=== PATIENT | female | born 1980 | race Two or more races ===

== ENCOUNTER 2022-12-16 20:37 | Emergency (ER) | payer OTHER ==
[~2022-12-16] VITALS: Ht 144.8 cm; Wt 62.6 kg
[2022-12-16] MEDS ORDERED: IBUP-1955 PO ×2 (21:23→22:03)
[2022-12-16] MEDS ORDERED: KETOROLAC TROMETHAMINE INJ 30 MG/ML VIAL ONE (21:27)
[2022-12-16] MEDS ORDERED: ACETAMINOPHEN 325 MG TABLET PO ONE (21:30)
[2022-12-16] MEDS ORDERED: KETOROLAC TROMETHAMINE INJ 30 MG/ML VIAL IM ONE (21:30)
[2022-12-16 22:49] VITALS: BP 135/87; TEMP 98.1; O2SAT 98
== END 2022-12-16 22:45 | disposition home or self-care (01) ==
LOC: EDBD 20:56 → ER 20:56
DX: S93.402A Sprain of unspecified ligament of left ankle, initial encounter (principal); X50.1XXA Overexertion from prolonged static or awkward postures, initial encounter; Y93.89 Activity, other specified; Y92.89 Other specified places as the place of occurrence of the external cause; Y99.8 Other external cause status
CPT/HCPCS: 99283; 96372; 73610; J1885